=== PATIENT | male | born 1995 ===

== ENCOUNTER 2025-07-14 14:39 | Emergency (ER) | payer MEDICAID ==
[2025-07-14] MEDS: Ketorolac 30 MG/ML SDV IM ONE (15:03)
[2025-07-14] MEDS: Take Home: Ketorolac 10 MG Tab, 4 Tab Pack PO ONE (15:39)
[2025-07-14] MEDS: Take Home: Cyclobenzaprine 10 MG Tab, 4 Tab Pack PO ONE (15:39)
== END 2025-07-14 15:46 | disposition home or self-care (01) ==
LOC: LL.ED 14:39
DX: M54.50 Low back pain, unspecified (principal); F17.210 Nicotine dependence, cigarettes, uncomplicated; Z79.899 Other long term (current) drug therapy; Z88.0 Allergy status to penicillin
CPT/HCPCS: 96372; 99283; A9270; J1885; J3360